=== PATIENT | female | born 1940 | race Caucasian/White ===

== ENCOUNTER 2016-08-17 11:21 | Inpatient (IN) | payer MEDICARE ==
[~2016-08-17] VITALS: Ht 172.7 cm; Wt 81.1 kg
[2016-08-17] MEDS ORDERED: SODIUM CHLORIDE FLUSH 10ML SYR IVF ONE (12:30)
[2016-08-17] MEDS ORDERED: ONDANSETRON 2MG/ML, 2ML IVPush ONE (12:30)
[2016-08-17] MEDS ORDERED: SODIUM CHLORIDE 0.9% 1,000ML IVBOLUS ONE (12:30)
[2016-08-17] MEDS ORDERED: MORPHINE SULFATE 4 MG/ML, 1ML IVPush PRN (12:30)
[2016-08-17 12:47] LABS: ASPARTATE AMINO TRANSFERASE 16 U/L (15-37); BLOOD UREA NITROGEN 15 mg/dL (7-18)
[2016-08-17] MEDS ORDERED: POTASSIUM CHLORIDE 20 MEQ in SODIUM CHLORIDE 0.9% 1,000 ML IV ONE (14:23)
[2016-08-17] MEDS ORDERED: MORPHINE SULFATE 4 MG/ML, 1ML ONE (14:42)
[2016-08-17] MEDS ORDERED: ONDANSETRON 2MG/ML, 2ML ONE (14:42)
[2016-08-17] MEDS ORDERED: BISACODYL 10 MG SUPP PR PRN (15:30)
[2016-08-17] MEDS ORDERED: LABETALOL 5MG/ML, 20ML IV PRN (15:30)
[2016-08-17] MEDS ORDERED: LOSA25TA5 PO (17:01)
[2016-08-17] MEDS ORDERED: CLON1TAB23 PO (17:01)
[2016-08-17] MEDS ORDERED: LEVO88TA4 PO (17:01)
[2016-08-17] MEDS ORDERED: SIMV20TA3 PO (17:01)
[2016-08-17] MEDS ORDERED: ESCI20TA PO (17:01)
[2016-08-17] MEDS ORDERED: ASPI-496 PO (17:01)
[2016-08-17] MEDS ORDERED: FEXO1TAB29 PO (17:01)
[2016-08-17] MEDS: SODIUM CHLORIDE 0.9% 1,000 ML IV SCH (17:02)
[2016-08-17 17:43] VITALS: BP 141/53
[2016-08-17 19:21] VITALS: BP 121/60
[2016-08-17] MEDS: LORazepam 2 MG/ML, 1ML IVPush PRN (21:45)
[2016-08-17] MEDS: MORPHINE SULFATE 4 MG/ML, 1ML IVPush PRN (21:52)
[2016-08-18] MEDS: SODIUM CHLORIDE 0.9% 1,000 ML IV SCH ×3 (00:13→21:02)
[2016-08-18 01:24] VITALS: BP 112/58
[2016-08-18] MEDS: MORPHINE SULFATE 4 MG/ML, 1ML IVPush PRN ×2 (01:33→21:03)
[2016-08-18 06:26] LABS: ASPARTATE AMINO TRANSFERASE 14 U/L (15-37); BLOOD UREA NITROGEN 21 mg/dL (7-18)
[2016-08-18] MEDS ORDERED: PANTOPRAZOLE 40 MG IV IVP SCH (07:30)
[2016-08-18 07:40] VITALS: BP 114/65
[2016-08-18] MEDS: CEFTRIAXONE PMX 1GM/50ML 50 ML IV SCH (12:31)
[2016-08-18 14:36] VITALS: BP 122/51
[2016-08-18 14:45] VITALS: BP 112/53
[2016-08-18] MEDS: LORazepam 2 MG/ML, 1ML IVPush PRN ×2 (15:09→23:24)
[2016-08-18 20:13] VITALS: BP 155/63
[2016-08-18] MEDS ORDERED: MICONAZOLE 7 VAG. CRM 2%, 45GM VG SCH (21:00)
[2016-08-18] MEDS: ONDANSETRON 2MG/ML, 2ML IVP PRN (21:17)
[2016-08-18] MEDS: VAG VG SCH (23:15)
[2016-08-18] MEDS: MICONAZOLE NITRATE VG SCH (23:15)
[2016-08-19 01:52] VITALS: BP 111/56
[2016-08-19] MEDS: SODIUM CHLORIDE 0.9% 1,000 ML IV SCH ×2 (06:39→17:47)
[2016-08-19 06:57] LABS: BLOOD UREA NITROGEN 24 mg/dL (7-18)
[2016-08-19 07:49] VITALS: BP 120/58
[2016-08-19] MEDS: METOCLOPRAMIDE 5 MG/ML, 2ML IVPush SCH ×3 (09:13→21:05)
[2016-08-19] MEDS: CEFTRIAXONE PMX 1GM/50ML 50 ML IV SCH (12:38)
[2016-08-19 12:59] VITALS: BP 139/64
[2016-08-19] MEDS: ONDANSETRON 2MG/ML, 2ML IVP PRN (14:48)
[2016-08-19] MEDS: LORazepam 2 MG/ML, 1ML IVPush PRN (14:49)
[2016-08-19 19:35] VITALS: BP 129/59
[2016-08-19] MEDS: VAG VG SCH (21:04)
[2016-08-19] MEDS: MICONAZOLE NITRATE VG SCH (21:04)
[2016-08-19] MEDS: MORPHINE SULFATE 4 MG/ML, 1ML IVPush PRN (21:07)
[2016-08-20] MEDS: SODIUM CHLORIDE 0.9% 1,000 ML IV SCH ×3 (00:48→17:00)
[2016-08-20] MEDS: MORPHINE SULFATE 4 MG/ML, 1ML IVPush PRN ×3 (00:48→22:24)
[2016-08-20 03:50] VITALS: BP 128/63
[2016-08-20] MEDS: METOCLOPRAMIDE 5 MG/ML, 2ML IVPush SCH ×3 (04:07→18:25)
[2016-08-20 06:25] LABS: BLOOD UREA NITROGEN 25 mg/dL (7-18)
[2016-08-20 06:55] VITALS: BP 134/61
[2016-08-20] MEDS: LEVOTHYROXINE 100 MCG INJ IVPush SCH (08:55)
[2016-08-20] MEDS: CEFTRIAXONE PMX 1GM/50ML 50 ML IV SCH ×3 (12:00→16:43)
[2016-08-20 14:00] VITALS: BP 130/87
[2016-08-20 18:38] VITALS: BP 153/66
[2016-08-20] MEDS: VAG VG SCH (22:24)
[2016-08-20] MEDS: MICONAZOLE NITRATE VG SCH (22:24)
[2016-08-21] MEDS: METOCLOPRAMIDE 5 MG/ML, 2ML IVPush SCH ×4 (00:43→19:46)
[2016-08-21 03:03] VITALS: BP 126/68
[2016-08-21 05:21] LABS: BLOOD UREA NITROGEN 18 mg/dL (7-18)
[2016-08-21 06:58] VITALS: BP 149/68
[2016-08-21] MEDS: POTASSIUM CHLORIDE 20 MEQ TAB.ER.PRT PO SCH ×3 (09:43→20:39)
[2016-08-21] MEDS: LEVOTHYROXINE 100 MCG INJ IVPush SCH (09:43)
[2016-08-21] MEDS ORDERED: MAGNESIUM SULFATE PMX 2GM/50ML 50 ML IV ONE (11:30)
[2016-08-21] MEDS: MORPHINE SULFATE 4 MG/ML, 1ML IVPush PRN (13:53)
[2016-08-21 13:55] VITALS: BP 110/55
[2016-08-21] MEDS: CEFTRIAXONE PMX 1GM/50ML 50 ML IV SCH (16:29)
[2016-08-21] MEDS ORDERED: DIPHENHYDRAMINE/ZINC CRM 2%, 30GM TP PRN (17:00)
[2016-08-21 19:21] VITALS: BP 149/63
[2016-08-21] MEDS: ONDANSETRON 2MG/ML, 2ML IVP PRN (19:50)
[2016-08-22] MEDS: METOCLOPRAMIDE 5 MG/ML, 2ML IVPush SCH ×4 (02:00→20:00)
[2016-08-22 03:33] VITALS: BP 137/71
[2016-08-22 05:38] LABS: BLOOD UREA NITROGEN 13 mg/dL (7-18)
[2016-08-22 05:44] LABS: ASPARTATE AMINO TRANSFERASE 43 U/L (15-37)
[2016-08-22] MEDS: ONDANSETRON 2MG/ML, 2ML IVP PRN ×2 (06:45→21:08)
[2016-08-22 07:30] VITALS: BP 125/62
[2016-08-22] MEDS: LEVOTHYROXINE 100 MCG INJ IVPush SCH (10:08)
[2016-08-22] MEDS: POTASSIUM ACID PHOSPHATE 500 MG TABLET.SOL PO SCH ×3 (10:08→20:00)
[2016-08-22] MEDS: POTASSIUM CHLORIDE 20 MEQ TAB.ER.PRT PO SCH ×3 (10:09→15:55)
[2016-08-22 13:35] VITALS: BP 124/64
[2016-08-22] MEDS: CEFTRIAXONE PMX 1GM/50ML 50 ML IV SCH (14:46)
[2016-08-22 19:14] VITALS: BP 144/67
[2016-08-23] MEDS: METOCLOPRAMIDE 5 MG/ML, 2ML IVPush SCH ×4 (01:15→21:24)
[2016-08-23] MEDS: ONDANSETRON 2MG/ML, 2ML IVP PRN (01:15)
[2016-08-23 01:57] VITALS: BP 132/74
[2016-08-23] MEDS: POTASSIUM ACID PHOSPHATE 500 MG TABLET.SOL PO SCH (02:00)
[2016-08-23 07:43] VITALS: BP 137/76
[2016-08-23 07:55] LABS: BLOOD UREA NITROGEN 8 mg/dL (7-18)
[2016-08-23] MEDS: LEVOTHYROXINE 100 MCG INJ IVPush SCH (09:17)
[2016-08-23] MEDS: NS + 40MEQ KCL 1,000 ML IV SCH ×2 (11:13→21:24)
[2016-08-23] MEDS: CEFTRIAXONE PMX 1GM/50ML 50 ML IV SCH (14:25)
[2016-08-23 14:37] VITALS: BP 125/67
[2016-08-23] MEDS: LORazepam 2 MG/ML, 1ML IVPush PRN (17:24)
[2016-08-23 20:05] VITALS: BP 117/67
[2016-08-24] MEDS: LORazepam 2 MG/ML, 1ML IVPush PRN ×3 (00:25→15:55)
[2016-08-24] MEDS: METOCLOPRAMIDE 5 MG/ML, 2ML IVPush SCH ×4 (02:34→20:00)
[2016-08-24 03:52] VITALS: BP 131/77
[2016-08-24] MEDS: NS + 40MEQ KCL 1,000 ML IV SCH ×2 (05:13→15:04)
[2016-08-24 05:31] LABS: BLOOD UREA NITROGEN 8 mg/dL (7-18)
[2016-08-24 09:33] VITALS: BP 130/66
[2016-08-24] MEDS: LEVOTHYROXINE 100 MCG INJ IVPush SCH (10:00)
[2016-08-24 13:49] VITALS: BP 130/72
[2016-08-24] MEDS ORDERED: FENTANYL PF 250 MCG/5ML ONE (17:44)
[2016-08-24] MEDS ORDERED: MIDAZOLAM 1 MG/ML, 2ML ONE (17:44)
[2016-08-24] MEDS ORDERED: VASOPRESSIN 20 UNIT/ML, 1ML ONE (17:53)
[2016-08-24] MEDS ORDERED: PROPOFOL 10 MG/ML, 20ML ONE (18:20)
[2016-08-24] MEDS ORDERED: ROCURONIUM 10 MG/ML ONE (18:20)
[2016-08-24] MEDS ORDERED: CEFOTETAN 2 GM ONE (18:20)
[2016-08-24] MEDS ORDERED: DEXAMETHASONE 4 MG/ML, 1ML ONE (18:20)
[2016-08-24] MEDS ORDERED: ONDANSETRON 2MG/ML, 2ML ONE (18:20)
[2016-08-24] MEDS ORDERED: BUPIVACAINE/PF-EPI 0.25% 1:200K INFIL ONE (18:52)
[2016-08-24] MEDS ORDERED: OXYcodone 5 MG/5 ML ORAL.SOL UDC ONE (19:45)
[2016-08-24] MEDS ORDERED: PROMETHAZINE 25 MG/ML, 1ML IV PRN (20:00)
[2016-08-24] MEDS ORDERED: hydrALAzine 20 MG/ML, 1ML IV PRN (20:00)
[2016-08-24] MEDS ORDERED: MIDAZOLAM 1 MG/ML, 2ML IV PRN (20:00)
[2016-08-24] MEDS ORDERED: ONDANSETRON 2MG/ML, 2ML IVPush PRN (20:00)
[2016-08-24] MEDS ORDERED: FENTANYL PF 100 MCG/2ML IV PRN (20:00)
[2016-08-24] MEDS ORDERED: MEPERIDINE/PF 25MG/0.5ML IVPush PRN (20:00)
[2016-08-24] MEDS ORDERED: OXYcodone 5 MG/5 ML ORAL.SOL UDC PO PRN (20:00)
[2016-08-24] MEDS ORDERED: ACETAMINOPHEN 325 MG TABLET PO PRN (20:00)
[2016-08-24] MEDS ORDERED: LABETALOL 5MG/ML, 20ML IV PRN (20:00)
[2016-08-24] MEDS ORDERED: HYDROmorphone 1 MG/ML, 1ML IV PRN (20:00)
[2016-08-25 00:13] VITALS: BP 134/67
[2016-08-25] MEDS: NS + 40MEQ KCL 1,000 ML IV SCH ×3 (00:47→18:27)
[2016-08-25] MEDS: METOCLOPRAMIDE 5 MG/ML, 2ML IVPush SCH ×3 (02:27→14:28)
[2016-08-25] MEDS: LORazepam 2 MG/ML, 1ML IVPush PRN ×3 (02:27→20:47)
[2016-08-25 04:27] VITALS: BP 133/64
[2016-08-25 06:31] LABS: BLOOD UREA NITROGEN 7 mg/dL (7-18)
[2016-08-25 07:15] VITALS: BP 136/62
[2016-08-25] MEDS: LEVOTHYROXINE 100 MCG INJ IVPush SCH (09:15)
[2016-08-25 13:05] VITALS: BP 128/70
[2016-08-25] MEDS ORDERED: METOCLOPRAMIDE 5 MG/ML, 2ML IVPush PRN (15:00)
[2016-08-25 20:47] VITALS: BP 127/72
[2016-08-26] MEDS: NS + 40MEQ KCL 1,000 ML IV SCH ×3 (02:09→20:41)
[2016-08-26 02:21] VITALS: BP 128/67
[2016-08-26 06:51] LABS: BLOOD UREA NITROGEN 4 mg/dL (7-18)
[2016-08-26] MEDS: LEVOTHYROXINE 100 MCG INJ IVPush SCH (08:15)
[2016-08-26] MEDS: LORazepam 2 MG/ML, 1ML IVPush PRN ×2 (08:21→23:42)
[2016-08-26 08:33] VITALS: BP 131/71
[2016-08-26] MEDS: POTASSIUM ACID PHOSPHATE 500 MG TABLET.SOL PO SCH ×3 (10:58→23:39)
[2016-08-26] MEDS ORDERED: MAGNESIUM SULFATE PMX 2GM/50ML 50 ML IV ONE (11:00)
[2016-08-26 13:49] VITALS: BP 128/65
[2016-08-26 19:35] VITALS: BP 135/69
[2016-08-27 03:41] VITALS: BP 132/83
[2016-08-27] MEDS: NS + 40MEQ KCL 1,000 ML IV SCH ×2 (05:07→12:00)
[2016-08-27] MEDS: POTASSIUM ACID PHOSPHATE 500 MG TABLET.SOL PO SCH ×3 (05:35→16:52)
[2016-08-27 09:01] VITALS: BP 148/76
[2016-08-27] MEDS: LEVOTHYROXINE 100 MCG INJ IVPush SCH (09:02)
[2016-08-27 13:57] VITALS: BP 124/67
[2016-08-27] MEDS ORDERED: ONDA4TAB13 SL (16:34)
[2016-08-27] MEDS ORDERED: HYDR-883 PO (16:34)
[2016-08-27 16:45] VITALS: BP 150/85
== END 2016-08-27 17:27 | disposition home health service (06) | DRG 853 ==
LOC: ED 14:19 → EDIP 14:23 → 4NOR 15:48 → DCLOUNGE 08-27 17:09
PROVIDERS: ADMIT Internal Medicine; ATTEND Internal Medicine
PROC: 0T9B70Z Drainage of Bladder with Drainage Device, Via Natural or Artificial Opening (ICD-10-PCS; 2016-08-17)
PROC: 0DN84ZZ Release Small Intestine, Percutaneous Endoscopic Approach (ICD-10-PCS; 2016-08-24)
PROC: 0DNB4ZZ Release Ileum, Percutaneous Endoscopic Approach (ICD-10-PCS; principal; 2016-08-24 17:00)
DX: A40.1 Sepsis due to streptococcus, group B (principal); N17.0 Acute kidney failure with tubular necrosis; K56.5 Intestinal adhesions [bands] with obstruction (postinfection); R17 Unspecified jaundice; N39.0 Urinary tract infection, site not specified; E87.0 Hyperosmolality and hypernatremia; A41.01 Sepsis due to Methicillin susceptible Staphylococcus aureus; D72.829 Elevated white blood cell count, unspecified; E86.0 Dehydration; E83.52 Hypercalcemia; I10 Essential (primary) hypertension; E78.5 Hyperlipidemia, unspecified; F41.8 Other specified anxiety disorders; E03.9 Hypothyroidism, unspecified; L29.8 Other pruritus; K52.9 Noninfective gastroenteritis and colitis, unspecified; A49.01 Methicillin susceptible Staphylococcus aureus infection, unspecified site; K59.09 Other constipation; M51.36 Other intervertebral disc degeneration, lumbar region; E87.6 Hypokalemia; E83.42 Hypomagnesemia; E83.39 Other disorders of phosphorus metabolism; M47.9 Spondylosis, unspecified; Z80.8 Family history of malignant neoplasm of other organs or systems; Z80.3 Family history of malignant neoplasm of breast; Z88.0 Allergy status to penicillin; Z90.710 Acquired absence of both cervix and uterus; E66.9 Obesity, unspecified; Z68.27 Body mass index [BMI] 27.0-27.9, adult
CPT/HCPCS: 36415; 74000; 74176; 74250; 80048; 80053; 81001; 83690; 83735; 84100; 85025; 85610; 87077; 87086; 87147; 87186; 87324; 93005; 99285; J0696; J1100; J2250; J2405; J2704; J3010; C9113; J2060; J2765; J3475; J3480; J7030; S0074

== ENCOUNTER → 2018-04-06 | Outpatient (CLI) | payer MEDICARE ==
[~2018-04-06] MED LIST: ASPI-496 PO; CLON1TAB23 PO; ESCI20TA PO; FEXO1TAB29 PO; HYDR-3652 PO; LEVO88TA4 PO; LOSA25TA6 PO; ONDA4TAB13 SL; SIMV20TA3 PO
== END | disposition home or self-care (01) ==
LOC: CFH 11:44
PROVIDERS: ATTEND Internal Medicine
DX: Z13.820 Encounter for screening for osteoporosis (principal); M85.88 Other specified disorders of bone density and structure, other site; N95.8 Other specified menopausal and perimenopausal disorders
CPT/HCPCS: 77080

== ENCOUNTER → 2018-09-08 | Outpatient (CLI) | payer MEDICARE ==
[~2018-09-08] MED LIST changes: +LOSA25TA25 PO; -LOSA25TA6 PO
== END | disposition home or self-care (01) ==
LOC: CVU 08:28
PROVIDERS: ATTEND Internal Medicine
DX: I73.9 Peripheral vascular disease, unspecified (principal)
CPT/HCPCS: 93925